=== PATIENT | female | born 1975 | race Caucasian/White ===

== ENCOUNTER 2018-09-11 19:21 | Emergency (ER) | payer MEDICAID ==
[~2018-09-11] VITALS: Ht 157.5 cm; Wt 54.4 kg
[2018-09-11 19:24] VITALS: Ht 157.5 cm; Wt 54.4 kg
[2018-09-11] MEDS ORDERED: CLEOCIN HCL300 MG PO (20:28)
[2018-09-11] MEDS ORDERED: KEFLEX500 MG PO (20:28)
[2018-09-11 20:47] VITALS: BP 132/87
== END 2018-09-11 20:47 | disposition home or self-care (01) ==
LOC: D.ER 19:21
DX: N61.1 Abscess of the breast and nipple (principal)